=== PATIENT | female | born 1990 | race African-American/Black ===

== ENCOUNTER 2019-09-05 01:32 | Emergency (ER) | payer OTHER, SELFPAY ==
[2019-09-05 01:50] VITALS: BP 119/69; PULSE 110; RESP 18; TEMP 36.5; O2SAT 100
--- NOTE | 2019-09-05 01:51 | ED.HA ---
HPI - Headache General Chief Complaint: Headache Stated Complaint: Flu B+, headache Time Seen by Provider: 09/05/19 01:51 Source: patient Mode of arrival: ambulatory Limitations: no limitations History of Present Illness HPI Narrative: A 28 y/o female presents to the ED with c/o a HOLLIDAY. Pt states that she tested positive for influenza B 4 days ago and was prescribed Tamaflu. Pt has been taking this medicine with no relief of her HOLLIDAY. Pt took 2 Tylenol 500 mg at 8:00 PM. Pt is currently 30 weeks and goes to [facility]. She reports rhinorrhea, a sore throat, N/V, and a fever, but denies smoking and a PMHx of migraines. Denies any abdominal pain or vaginal bleeding Onset (ago): day(s) (4) Treatments prior to arrival: other (2 Tylenol 500 mg) Related Data Allergies Allergy/AdvReac Type Severity Reaction Status Date / Time metronidazole [From Flagyl] Allergy Unknown Verified 09/05/19 02:08 Review of Systems Review of Systems: All systems reviewed & are unremarkable except as noted in HPI and below Constitutional: Constitutional: Reports fever(s) ENT: Reports sore throat Comments: Reports: rhinorrhea Gastrointestinal: Gastrointestinal: Reports nausea and Reports vomiting Neurologic: Reports headache(s) [facility] Past Medical History Medical History (Updated 09/05/19 @ 06:12 by Escobar Palomo DO) 30 weeks gestation of Influenza B Social History Social History (Updated 09/05/19 @ 01:58 by Rosy Crawford) Smoking status: Never smoker Gender identity (if verbalized by the patient): Female Comments No PCP on file. Exam Narrative: Exam Narrative: APPEARANCE: No acute distress, nontoxic, resting in bed EYES: EOMI HEENT: Normocephalic, atraumatic, TMs clear bilaterally, bilateral turbinates boggy, erythema the posterior pharynx and bilateral tonsils oromucosa dry, no exudate of the posterior pharynx, uvula midline, no trismus hoarse voice RESPIRATORY: No respiratory distress Clear to auscultation bilaterally with no rhonchi wheezing or rales. CARDIOVASCULAR: Regular rate and rhythm without murmurs rubs or gallops. ABDOMINAL: Soft, nontender, nondistended, no rebound or guarding MUSCULOSKELETAl: Moves all extremities. No clubbing, cyanosis or edema. NEURO: Awake and alert x 3. Following commands, speech normal, no focal deficits SKIN:: Warm, dry. No rashes lesions or abrasions PSYCHIATRIC: Normal affect/mood, Course Course Emergency Course: Patient states she took a total of 4 g of Tylenol yesterday she did space them out appropriately every 6 hours with the patient currently being 30 weeks she cannot receive Toradol and I do not wish to give any further Tylenol at this time secondary to her already reaching her max of 4 g will hydrate at this time Patient states she is feeling better following fluids. Is ready for discharge Discussed with patient results of workup and diagnosis. Discussed need for follow-up with primary care, proper use of medication, and reasons to return to the emergency department. Patient understands and agrees to current treatment plan Vital Signs Vital signs: Vital Signs Temperature 97.7 F 09/05/19 01:50 Pulse Rate 110 H 09/05/19 01:50 Respiratory Rate 18 09/05/19 01:50 Blood Pressure 119/69 09/05/19 01:50 Pulse Oximetry 100 09/05/19 01:50 Temperature 97.7 F 09/05/19 01:50 Pulse Rate 92 09/05/19 04:20 Respiratory Rate 18 09/05/19 04:20 Blood Pressure 102/58 L 09/05/19 04:20 Pulse Oximetry 99 09/05/19 04:20 MDM - Headache MDM Narrative Medical decision making narrative: Patient's headache was not sudden or maximal in onset. There are no focal deficits on exam. Subarachnoid hemorrhage is felt to be unlikely at this time. There is no history of fever and neck is supple to evaluation without meningismus. Meningitis is felt to be unlikely. No traumatic history or signs of trauma on evaluation. Risk factors for cerebral veno
[2019-09-05 02:26] LABS: Basophils Percent Auto 0.4 % (0.2-1.2); Eosinophils Absolute Auto 0.1 K/mm3 (0-0.3); Eosinophils Percent Auto 0.5 % (0-4.4); Hematocrit 30.7 % (37.0-47.0); Hemoglobin 9.6 g/dL (12.0-15.0); Immature Granulocyte Absolute 0.05 K/mm3 (0.00-0.031); Immature Granulocyte Percent A 0.5 % (0-0.5); Lymphocytes Absolute Auto 0.85 K/mm3 (0.9-3.2); Lymphocytes Percent Auto 8.5 % (18.3-44.2); Mean Corpuscular HGB Conc 31.3 g/dl (32-36); Mean Corpuscular Hemoglobin 26.1 pg (26-34); Mean Corpuscular Volume 83.4 fl (80-100); Mean Platelet Volume 9.8 fl (7.4-10.4); Monocytes Absolute Auto 0.7 K/mm3 (0.1-0.6); Monocytes Percent Auto 6.7 % (2.6-8.5); Neutrophils Absolute Auto 8.3 K/mm3 (1.3-6.7); Neutrophils Percent Auto 83.4 % (45.5-73.1); Platelet Count Result 213 k/mm3 (150-375); Red Blood Count 3.68 M/mm3 (4.2-5.4); Red Cell Distribution Width 15.2 % (11.5-14.5)
[2019-09-05 02:29] LABS: Alanine Aminotransferase 12 U/L (4-35); Alkaline Phosphatase 135 U/L (38-126); Aspartate Amino Transferase 20 U/L (14-36); Blood Urea Nitrogen 8 mg/dL (7-17); Calcium 8.8 mg/dL (8.4-10.2); Carbon Dioxide 15 mmol/L (22-30); Chloride 103 mmol/L (98-107); Estimated Glomerular Filt Rate > 60; Glucose 75 mg/dL (65-105); Potassium 3.1 mmol/L (3.4-5.0); Sodium 137 mmol/L (137-145)
[2019-09-05] MEDS: LACTATED RINGERS 1,000 ML 999 ML IV CONT ×2 (02:38→04:20)
[2019-09-05 04:20] VITALS: BP 102/58; PULSE 92; RESP 18; O2SAT 99
[2019-09-05] MEDS: POTASSIUM CHLORIDE 20 MEQ PACKET (FOR LIQUID) 40 MEQ PO (05:57)
[2019-09-05 06:27] VITALS: BP 108/77; PULSE 88; RESP 18; O2SAT 98
== END 2019-09-05 06:28 | disposition home or self-care (01) ==
PROVIDERS: Emergency Provider Emergency Medicine
DX: O99.513 Diseases of the respiratory system complicating pregnancy, third trimester (principal); J10.1 Influenza due to other identified influenza virus with other respiratory manifestations; Z3A.30 30 weeks gestation of pregnancy
CPT/HCPCS: 36415; 80053; 85025; 96361; 96374; 99284; A9270; J1200; J7120